=== PATIENT | male | born 1985 | race Caucasian/White ===

== ENCOUNTER 2017-04-22 13:27 | Emergency (ER) | payer OTHER ==
[~2017-04-22] VITALS: Ht 190.5 cm; Wt 86.2 kg
[2017-04-22 13:27] VITALS: BP 117/69
--- NOTE | 2017-04-22 15:24 | NUR ---
Patient eloped from facility. ER MD notified.
--- NOTE | 2017-04-22 19:10 | NUR ---
CALLED TO [facility] W/ NO ANSWER. PT LWBS.
== END 2017-04-22 19:28 | disposition home or self-care (01) ==
LOC: ER 13:33
DX: Z53.21 Procedure and treatment not carried out due to patient leaving prior to being seen by health care provider (principal)
CPT/HCPCS: A4606; Z7610